=== PATIENT | female | born 1995 | race Caucasian/White ===

== ENCOUNTER → 2021-04-09 | Outpatient (CLI) | payer OTHER ==
--- NOTE | 2021-04-10 10:11 | US ---
EXAMINATION TYPE: US pelvic complete DATE OF EXAM: 04/09/2021 COMPARISON: NONE CLINICAL HISTORY: 26-year-old female N92.0 FREQUENT MENSTRUATION. Irregular menses. No pain. TECHNIQUE: Transabdominal (TA). Transabdominal sonographic images of the pelvis were acquired. Date of LMP: 04/04/2021, G0 FINDINGS: EXAM MEASUREMENTS: Uterus: 7.9 x 3.7 x 4.5 cm Endometrial Stripe: 0.7 cm Right Ovary: 3.2 x 1.9 x 2.1 cm Left Ovary: 2.7 x 2.0 x 1.9 cm 1. Uterus: Anteverted and otherwise wnl 2. Endometrium: wnl 3. Right Ovary: follicles seen 4. Left Ovary: follicles seen, 1.9 cm dominant follicle. 5. Bilateral Adnexa: wnl 6. Posterior cul-de-sac: Trace amount of free fluid IMPRESSION: 1. A 1.9 cm dominant follicle in the left ovary. 2. Endometrial stripe measuring 7 mm. 3. Trace cul-de-sac free fluid likely physiologic.
== END | disposition home or self-care (01) ==
LOC: RADUSWWP 16:20
PROVIDERS: ATTEND Family Medicine
DX: N83.02 Follicular cyst of left ovary (principal); R93.89 Abnormal findings on diagnostic imaging of other specified body structures
CPT/HCPCS: 76856

== ENCOUNTER → 2021-05-13 | Outpatient (CLI) | payer OTHER ==
[2021-05-13 17:23] LABS: Basophils # (A) 0.02 X 10*3/uL (0.00-0.10); Basophils % (A) 0.4 %; Eosinophils # (A) 0.12 X 10*3/uL (0.04-0.35); Eosinophils % (A) 2.6 %; HCT 38.6 % (37.2-46.3); HGB 12.2 g/dL (12.0-15.0); Immature Grans, Automated 0.2 %; Lymphocytes # (A) 1.64 X 10*3/uL (0.90-5.00); Lymphocytes % (A) 35.3 %; MCH 29.9 pg (27.0-32.0); MCHC 31.6 g/dL (32.0-37.0); MCV 94.6 fL (80.0-97.0); Mean Platelet Volume 11.5 fL (9.5-12.2); Monocytes # (A) 0.53 X 10*3/uL (0.20-1.00); Monocytes % (A) 11.4 %; NRBC Per 100 WBC 0 /100 WBCS (0.0-0.0); Neutrophils # (A) 2.33 X 10*3/uL (1.80-7.70); Neutrophils % (A) 50.1 %; Platelet Count 227 X 10*3/uL (140-440); RBC 4.08 X 10*6/uL (4.10-5.20); RDW 11.8 % (11.5-14.5); WBC 4.65 X 10*3/uL (4.50-10.00)
[2021-05-13 17:42] LABS: Progesterone 11.9 ng/mL
[2021-05-13 17:49] LABS: ALT 11 U/L (8-44); AST 17 U/L (13-35); African American GFR (CKD) 152.7 (60.0-200.0); Albumin 4.5 g/dL (3.8-4.9); Albumin/Globulin Ratio 2.28 (1.60-3.17); Alkaline Phosphatase 48 U/L (41-126); BUN/Creat Ratio 36.67 Ratio (12.00-20.00); Blood Urea Nitrogen 18.7 mg/dL (9.0-27.0); Calcium 9.3 mg/dL (8.7-10.3); Carbon Dioxide 23.9 mmol/L (20.0-27.5); Chloride 103 mmol/L (96-109); Glucose 60 mg/dL (70-110); HCG,Quantitative Serum <3.0 (0.0-6.0); Non-African American GFR(CKD) 131.8 (60.0-200.0); Sodium 138 mmol/L (135-145); Total Protein 6.4 g/dL (6.2-8.2)
== END | disposition home or self-care (01) ==
LOC: LABWHC1 10:03
PROVIDERS: ATTEND Obstetrics & Gynecology Obstetrics
DX: N92.1 Excessive and frequent menstruation with irregular cycle (principal); R10.2 Pelvic and perineal pain
CPT/HCPCS: 36415; 80053; 82627; 82670; 83001; 83036; 84144; 84146; 84403; 84443; 84702; 85025